=== PATIENT | male | born 1960 | race African-American/Black ===

== ENCOUNTER 2019-04-29 08:31 | Inpatient (IN) | payer OTHER ==
[2019-04-29 08:55] VITALS: BMI 32.1
--- NOTE | 2019-04-29 09:50 | HP ---
CIWA Score Nausea/Vomitin-Mild Nausea/No Vomiting Muscle Tremors: 1-None Visible, but [place] Anxiety: 0-No Anxiety, at Ease Agitation: 1-Slight > Activity Paroxysmal Sweats: 2 Orientation: 4Disoriented Place/Person Tacttile Disturbances: 0-None Auditory Disturbances: 0-None Visual Disturbances: 0-None Headache: 1-Very Mild (Patient score is low due to 2 days already in withdrawals. He was transferred from [facility] where he spent already one day in detox there and then referred.) CIWA-Ar Total Score: 10 - Admission Criteria OASAS Guidelines: Admission for Medically Managed Detox: Requires at least one of the followin. CIWA greater than 12 2. Seizures within the past 24 hours 3. Delirium tremens within the past 24 hours 4. Hallucinations within the past 24 hours 5. Acute intervention needed for co occurring medical disorder 6. Acute intervention needed for co occurring psychiatric disorder 7. Severe withdrawal that cannot be handled at a lower level of care (continued vomiting, continued diarrhea, abnormal vital signs) requiring intravenous medication and/or fluids 8. Admission ROS [facility] Chief Complaint: " I need to stop drinking and I need help" Allergies/Adverse Reactions: Allergies Allergy/AdvReac Type Severity Reaction Status Date / Time No Known Allergies Allergy Verified 04/29/19 08:42 History of Present Illness: Patient is a 59 year old black male with history of HTN and DM and alcohol dependence. He has no significant Family History and Surgical History. He was transferred here from [facility] where he already spent one day in detox with no meds and also one day traveling to be admitted here today. His breathalyzer was 0.098. However, he is a daily beer drinker of at least 6 pack of beer per day. He is asking for detox and perhaps rehab. He is appropriate for admission to detox for alcohol. Exam Limitations: No Limitations - Ebola screening Have you traveled outside of the country in the last 21 days: No Have you had contact with anyone from an Ebola affected area: No Have you been sick,other than usual withdrawal symptoms: No Do you have a fever: No - Review of Systems Constitutional: Chills, Loss of Appetite EENT: reports: No Symptoms Reported Respiratory: reports: No Symptoms reported Cardiac: reports: No Symptoms Reported GI: reports: No Symptoms Reported, Nausea, Poor Appetite : reports: No Symptoms Reported Musculoskeletal: reports: No Symptoms Reported Integumentary: reports: Dryness Neuro: reports: No Symptoms reported Endocrine: reports: No Symptoms Reported Hematology: reports: No Symptoms Reported Psychiatric: reports: No Sypmtoms Reported Other Systems: Reviewed and Negative Patient History - Patient Medical History Hx Anemia: No Hx Asthma: No Hx Chronic Obstructive Pulmonary Disease (COPD): No Hx Cancer: No Hx Cardiac Disorders: No Hx Congestive Heart Failure: No Hx Hypertension: Yes (on metoprolol and hydrochlorothiazide) Hx Diabetes: Yes (metformin and glipizide) Hx Gastrointestinal Disorders: No Hx Liver Disease: No Hx Genitourinary Disorders: No Hx Sexually Transmitted Disorders: No Hx Renal Disease (ESRD): No Hx Thyroid Disease: No Hx Human Immunodeficiency Virus (HIV): No Hx Hepatitis C: No Hx Depression: No Hx Suicide Attempt: No Hx Bipolar Disorder: No Hx Schizophrenia: No - Patient Surgical History Past Surgical History: No Hx Neurologic Surgery: No Hx Cataract Extraction: No Hx Cardiac Surgery: No Hx Lung Surgery: No Hx Breast Surgery: No Hx Breast Biopsy: No Hx Abdominal Surgery: No Hx Appendectomy: No Hx Cholecystectomy: No Hx Genitourinary Surgery: No Hx Section: No Hx Orthopedic Surgery: No Hx Hysterectomy: No Anesthesia Reaction: No - PPD History Previous Implant?: Yes (2017 at [facility] in [place]) Documented Results: Negative w/o proof Implanted On Prior [facility] Admission?: No PPD to be Administered?: No - Reproductive History Patient is a Female of Child Bearing Age (11 -55 yrs old): No - Smoking Cessation Smoking history: Current every day smoker Have you smoked in the past 12 months: Yes Hx Chewing Tobacco Use: No Initiated information on smoking cessation: Yes 'Breaking Loose' booklet given: 04/29/19 - Substance & Tx. History Hx Alcohol Use: Yes (see history) Hx Substance Use: No Substance Use Type: Alcohol Hx Substance Use Treatment: No - Substances abused Alcohol Substance route: Oral Frequency: Daily Amount used: beers- 5 24oz cans Age of first use: 16 Date of last use: 04/29/19 Family Disease History - Family Disease History Family Disease History: Diabetes: Grandparent (maternal grand mother), Other: Mother (alive and well), Brother (2 brothers alive and well), Sister (1 stepsister), Son (alive and well), Daughter (2 daughters and 2 stepdaughters) Admission Physical Exam [facility] - Vital Signs Vital Signs: Vital Signs - 24 hr 04/29/19 08:36 Temperature 97.6 F Pulse Rate 68 Respiratory 18 Rate Blood Pressure 137/63 - Physical General Appearance: Yes: No Apparent Distress, Alcohol on Breath HEENTM: Yes: EOMI, Hearing grossly Normal, Normocephalic, LAURA, Pharynx Normal Respiratory: Yes: Chest Non-Tender, Lungs Clear, Normal Breath Sounds Neck: Yes: No masses,lesions,Nodules, Supple, Trachea in good position Breast: Yes: Within Normal Limits Cardiology: Yes: Regular Rhythm, Regular Rate, S1, S2 Abdominal: Yes: Distended, Hernia (umbilical hernia noted) Genitourinary: Yes: Within Normal Limits Back: Yes: Within Normal Limits Musculoskeletal: Yes: full range of Motion, Gait Steady Neurological: Yes: warehouse team leader II-XII NML intact, Alert (alert bud disoriented to place) , Motor Strength 5/5, Normal Response Integumentary: Yes: Dry - Diagnostic (1) Alcohol dependence with acute alcoholic intoxication Current Visit: Yes Status: Acute (2) Diabetes 1.5, managed as type 2 Current Visit: Yes Status: Acute (3) Diabetes 1.5, managed as type 2 Current Visit: Yes Status: Acute (4) Diabetes Current Visit: Yes Status: Acute (5) Hypertension Current Visit: Yes Status: Acute Cleared for Admission [facility] - Detox or Rehab [facility] Level of Care: Medically Managed Detox Regimen/Protocol: Librium Screened but not Admitted - Documentation of Visit Screened but not Admitted: No Breathalyzer - Breathalyzer Breathalyzer: 0.098 Vital Signs - Vital Signs Vital signs refused: No Temperature: 97.6 F Temperature source: Oral Pulse Rate: 68 Respiratory Rate: 18 Blood Pressure: 137/63 BP Location: Left Arm Blood Pressure position: Sitting - Height Height: 5 ft 8 in - Weight Weight: 211 lb Weight measurement method: Standing scale - BMI Body Mass Index (BMI): 32.1 - Bowel Function Bowel Movement: No Urine Drug Screen - Test Device Lot number: [id number] Expiration date: 01/28/21 - Control Is test valid?: Yes - Results Drug screen NEGATIVE: Yes Inpatient Rehab Admission - Rehab Decision to Admit Inpatient rehab admission?: No
[2019-04-29] MEDS ORDERED: MAGNESIUM HYDROX 2400MG/30ML ORAL SUSPENSION 30 ML CUP PO PRN (10:13)
[2019-04-29] MEDS ORDERED: METHOCARBAMOL 500 MG TABLET PO PRN (10:13)
[2019-04-29] MEDS ORDERED: BISMUTH SUBSALICYLATE 524 MG/30 ML UD PO PRN (10:13)
[2019-04-29] MEDS ORDERED: ACETAMINOPHEN 325 MG TABLET (FP) PO PRN ×2 (10:13)
[2019-04-29] MEDS ORDERED: hydrOXYzine PAMOATE 25 MG CAPSULE (FP) PO PRN (10:13)
[2019-04-29] MEDS ORDERED: IBUPROFEN 400 MG TABLET (FP) PO PRN (10:13)
[2019-04-29] MEDS ORDERED: chlordiazePOXIDE HCL 10 MG CAPSULE PO PRN (10:13)
[2019-04-29] MEDS ORDERED: MAG HYDROX/AL HYDROX/SIMETH 30 ML UNIT-DOSE CUP PO PRN (10:13)
[2019-04-29] MEDS ORDERED: MENTHOL/PHENOL 1 EACH UD MM PRN (10:13)
[2019-04-29] MEDS ORDERED: MAGNESIUM CITRATE 300 ML BOTTLE PO PRN (10:13)
[2019-04-29] MEDS: metFORMIN HCL 500 MG TABLET (FP) PO SCH ×2 (11:12→17:35)
[2019-04-29] MEDS: HYDROCHLOROTHIAZIDE 12.5 MG CAPSULE (FP) PO SCH (11:12)
[2019-04-29 13:56] LABS: HEMATOCRIT 39.3 % (35.4-49); HEMOGLOBIN 12.9 GM/dL (11.7-16.9); MCH 28.7 pg (25.7-33.7); MCHC 32.8 g/dl (32.0-35.9); MEAN CELL VOLUME 87.4 fl (80-96); MEAN PLT VOLUME 8.2 fl (7.5-11.1); PLATELET COUNT 185 K/MM3 (134-434); RDW 13.9 % (11.9-15.9); WHITE BLOOD COUNT 6.3 K/mm3 (4.0-10.0)
[2019-04-29] MEDS: glipiZIDE-XL 10 MG TAB.ER.24 (FP) PO SCH ×2 (14:03→17:35)
[2019-04-29 14:04] LABS: ALBUMIN 3.9 g/dl (3.4-5.0); BILIRUBIN,TOTAL 0.2 mg/dL (0.2-1); BLOOD UREA NITROGEN 13.5 mg/dL (7-18); CALCIUM 8.9 mg/dL (8.5-10.1); CREATININE 1.1 mg/dL (0.55-1.3); TOT PROT 7.5 g/dl (6.4-8.2)
[2019-04-29] MEDS: chlordiazePOXIDE HCL 25 MG CAPSULE PO SCH (21:40)
[2019-04-29] MEDS: THIAMINE HCL 100 MG TABLET (FP) PO SCH (21:40)
[2019-04-29] MEDS: MELATONIN 5 MG TABLETS PO PRN (21:41)
[2019-04-30] MEDS: chlordiazePOXIDE HCL 25 MG CAPSULE PO SCH ×3 (06:44→22:02)
[2019-04-30] MEDS: PRENATAL VITAMINS W/ FOLIC ACID TABLET (FP) PO SCH (09:49)
[2019-04-30] MEDS: metFORMIN HCL 500 MG TABLET (FP) PO SCH ×2 (09:49→17:19)
[2019-04-30] MEDS: HYDROCHLOROTHIAZIDE 12.5 MG CAPSULE (FP) PO SCH (09:49)
[2019-04-30] MEDS: glipiZIDE-XL 10 MG TAB.ER.24 (FP) PO SCH ×2 (09:50→17:19)
--- NOTE | 2019-04-30 10:29 | PN ---
S CIWA - CIWA Score Nausea/Vomitin-No Nausea/No Vomiting Muscle Tremors: 3 Anxiety: 2 Agitation: 2 Paroxysmal Sweats: 1-Minimal Palms Moist Orientation: 0-Oriented Tacttile Disturbances: 0-None Auditory Disturbances: 0-None Visual Disturbances: 0-None Headache: 0-None Present CIWA-Ar Total Score: 8 BHS Progress Note (SOAP) Subjective: sweats interrupted sleep Objective: 04/30/19 10:29 Vital Signs Temperature 97.7 F 04/30/19 09:30 Pulse Rate 83 04/30/19 09:30 Respiratory Rate 20 04/30/19 09:30 Blood Pressure 133/82 04/30/19 09:30 O2 Sat by Pulse Oximetry (%) Laboratory Tests 04/29/19 04/29/19 04/29/19 10:20 10:20 10:20 WBC 6.3 RBC 4.50 Hgb 12.9 Hct 39.3 MCV 87.4 MCH 28.7 MCHC 32.8 RDW 13.9 Plt Count 185 MPV 8.2 Sodium 139 Potassium 4.0 Chloride 107 Carbon Dioxide 24 Anion Gap 9 BUN 13.5 Creatinine 1.1 Est GFR (CKD-EPI)AfAm 85.31 Est GFR (CKD-EPI)NonAf 73.61 POC Glucometer Random Glucose 173 H Calcium 8.9 Total Bilirubin 0.2 AST 43 H ALT 36 Alkaline Phosphatase 77 Total Protein 7.5 Albumin 3.9 RPR Titer Nonreactive 04/29/19 04/29/19 04/30/19 10:28 16:37 06:44 WBC RBC Hgb Hct MCV MCH MCHC RDW Plt Count MPV Sodium Potassium Chloride Carbon Dioxide Anion Gap BUN Creatinine Est GFR (CKD-EPI)AfAm Est GFR (CKD-EPI)NonAf POC Glucometer 173 121 72 Random Glucose Calcium Total Bilirubin AST ALT Alkaline Phosphatase Total Protein Albumin RPR Titer labs noted aaox3 ambulating no acute distress Assessment: 04/30/19 10:29 mild withdrawal sx Plan: continue detox increase fluids
[2019-04-30] MEDS: THIAMINE HCL 100 MG TABLET (FP) PO SCH (22:02)
[2019-05-01] MEDS: metFORMIN HCL 500 MG TABLET (FP) PO SCH ×2 (06:01→17:00)
[2019-05-01] MEDS: chlordiazePOXIDE 5 MG CAPSULE PO SCH ×3 (06:01→22:14)
[2019-05-01] MEDS: glipiZIDE-XL 10 MG TAB.ER.24 (FP) PO SCH ×2 (07:15→17:00)
[2019-05-01] MEDS: PRENATAL VITAMINS W/ FOLIC ACID TABLET (FP) PO SCH (10:31)
[2019-05-01] MEDS: HYDROCHLOROTHIAZIDE 12.5 MG CAPSULE (FP) PO SCH (10:31)
--- NOTE | 2019-05-01 12:04 | PN ---
S CIWA - CIWA Score Nausea/Vomitin-No Nausea/No Vomiting Muscle Tremors: 2 Anxiety: 1-Mildly Anxious Agitation: 2 Paroxysmal Sweats: 1-Minimal Palms Moist Orientation: 0-Oriented Tacttile Disturbances: 0-None Auditory Disturbances: 0-None Visual Disturbances: 0-None Headache: 0-None Present CIWA-Ar Total Score: 6 BHS Progress Note (SOAP) Subjective: sleepy tired Objective: 05/01/19 12:01 Vital Signs Temperature 98.1 F 05/01/19 09:43 Pulse Rate 86 05/01/19 09:43 Respiratory Rate 18 05/01/19 09:43 Blood Pressure 142/89 05/01/19 09:43 O2 Sat by Pulse Oximetry (%) Laboratory Tests 04/29/19 04/29/19 04/29/19 10:20 10:20 10:20 WBC 6.3 RBC 4.50 Hgb 12.9 Hct 39.3 MCV 87.4 MCH 28.7 MCHC 32.8 RDW 13.9 Plt Count 185 MPV 8.2 Sodium 139 Potassium 4.0 Chloride 107 Carbon Dioxide 24 Anion Gap 9 BUN 13.5 Creatinine 1.1 Est GFR (CKD-EPI)AfAm 85.31 Est GFR (CKD-EPI)NonAf 73.61 POC Glucometer Random Glucose 173 H Calcium 8.9 Total Bilirubin 0.2 AST 43 H ALT 36 Alkaline Phosphatase 77 Total Protein 7.5 Albumin 3.9 RPR Titer Nonreactive 04/29/19 04/29/19 04/30/19 10:28 16:37 06:44 WBC RBC Hgb Hct MCV MCH MCHC RDW Plt Count MPV Sodium Potassium Chloride Carbon Dioxide Anion Gap BUN Creatinine Est GFR (CKD-EPI)AfAm Est GFR (CKD-EPI)NonAf POC Glucometer 173 121 72 Random Glucose Calcium Total Bilirubin AST ALT Alkaline Phosphatase Total Protein Albumin RPR Titer 04/30/19 05/01/19 16:20 06:03 WBC RBC Hgb Hct MCV MCH MCHC RDW Plt Count MPV Sodium Potassium Chloride Carbon Dioxide Anion Gap BUN Creatinine Est GFR (CKD-EPI)AfAm Est GFR (CKD-EPI)NonAf POC Glucometer 140 157 Random Glucose Calcium Total Bilirubin AST ALT Alkaline Phosphatase Total Protein Albumin RPR Titer labs noted aaox3 ambulating no acute distress Assessment: 05/01/19 12:02 mild withdrawals Plan: continue detox increase fluids
[2019-05-01] MEDS: MELATONIN 5 MG TABLETS PO PRN (22:16)
[2019-05-01] MEDS: THIAMINE HCL 100 MG TABLET (FP) PO SCH (23:44)
[2019-05-02] MEDS ORDERED: chlordiazePOXIDE HCL 10 MG CAPSULE PO PRN
[2019-05-02] MEDS: chlordiazePOXIDE HCL 10 MG CAPSULE PO SCH ×3 (06:10→22:37)
[2019-05-02] MEDS: glipiZIDE-XL 10 MG TAB.ER.24 (FP) PO SCH ×2 (06:10→16:48)
[2019-05-02] MEDS: metFORMIN HCL 500 MG TABLET (FP) PO SCH ×2 (06:10→16:48)
[2019-05-02] MEDS: PRENATAL VITAMINS W/ FOLIC ACID TABLET (FP) PO SCH (09:26)
[2019-05-02] MEDS: HYDROCHLOROTHIAZIDE 12.5 MG CAPSULE (FP) PO SCH (09:26)
--- NOTE | 2019-05-02 13:30 | PN ---
S CIWA - CIWA Score Nausea/Vomitin-No Nausea/No Vomiting Muscle Tremors: 2 Anxiety: 1-Mildly Anxious Agitation: 1-Slight > Activity Paroxysmal Sweats: No Perspiration Orientation: 0-Oriented Tacttile Disturbances: 0-None Auditory Disturbances: 0-None Visual Disturbances: 0-None Headache: 0-None Present CIWA-Ar Total Score: 4 BHS Progress Note (SOAP) Subjective: tired Objective: 05/02/19 13:29 Vital Signs Temperature 98.1 F 05/02/19 09:20 Pulse Rate 81 05/02/19 09:20 Respiratory Rate 17 05/02/19 09:20 Blood Pressure 127/75 05/02/19 09:20 O2 Sat by Pulse Oximetry (%) aaox3 ambulating no acute distress Assessment: 05/02/19 13:30 mild withdrawal sx Plan: continue detox increase fluids d/c in am
[2019-05-02] MEDS: THIAMINE HCL 100 MG TABLET (FP) PO SCH (22:37)
[2019-05-03] MEDS ORDERED: chlordiazePOXIDE HCL 10 MG CAPSULE PO ONE (05:00)
[2019-05-03] MEDS: glipiZIDE-XL 10 MG TAB.ER.24 (FP) PO SCH (07:55)
[2019-05-03] MEDS: metFORMIN HCL 500 MG TABLET (FP) PO SCH (07:55)
[2019-05-03 09:45] VITALS: BP 100/66; PULSE 93; TEMP 97.5
--- NOTE | 2019-05-03 12:14 | DS ---
[facility] Detox Discharge Summary Admission Date: 04/29/19 Discharge Date: 05/03/19 - History Present History: Alcohol Dependence Additional Comments: Pt is medically cleared and discharge today. Pt completed his detox protocol. As per counselor's notes, "Counselor met with patient to discuss his aftercare plans. Patient was told that his packet was sent to the [facility] in [place] as requested. He states he has had second thoughts about going there. He states he will think about going into the care home in [place] over the weekend. His appointment is for Aug at the [facility]. Counselor encouraged the patient to follow up for continued treatment". Pt is encouraged to follow-up as discussed with his counselor and also to follow-up with his pmd. Pt is AOX3 and in no acute distress. Pertinent Past History: H/O HTN, DM, and alcohol use disorder. - Physical Exam Results Vital Signs: Vital Signs Temperature 97.5 F L 05/03/19 09:44 Pulse Rate 93 H 05/03/19 09:44 Respiratory Rate 18 05/03/19 09:44 Blood Pressure 100/66 05/03/19 09:44 O2 Sat by Pulse Oximetry (%) Vital Signs 05/03/19 05/03/19 06:42 09:44 Temperature 97.7 F 97.5 F L Pulse Rate 76 93 H Respiratory 18 18 Rate Blood Pressure 131/58 L 100/66 Lab Results WBC 6.3 K/mm3 (4.0-10.0) 04/29/19 10:20 RBC 4.50 M/mm3 (4.00-5.60) 04/29/19 10:20 Hgb 12.9 GM/dL (11.7-16.9) 04/29/19 10:20 Hct 39.3 % (35.4-49) 04/29/19 10:20 MCV 87.4 fl (80-96) 04/29/19 10:20 MCHC 32.8 g/dl (32.0-35.9) 04/29/19 10:20 RDW 13.9 % (11.9-15.9) 04/29/19 10:20 Plt Count 185 K/MM3 (134-434) 04/29/19 10:20 Sodium 139 mmol/L (136-145) 04/29/19 10:20 Potassium 4.0 mmol/L (3.5-5.1) 04/29/19 10:20 Chloride 107 mmol/L (98-107) 04/29/19 10:20 Carbon Dioxide 24 mmol/L (21-32) 04/29/19 10:20 Anion Gap 9 MMOL/L (8-16) 04/29/19 10:20 BUN 13.5 mg/dL (7-18) 04/29/19 10:20 Creatinine 1.1 mg/dL (0.55-1.3) 04/29/19 10:20 Random Glucose 173 mg/dL (74-106) H 04/29/19 10:20 Calcium 8.9 mg/dL (8.5-10.1) 04/29/19 10:20 Labs noted. Pertinent Admission Physical Exam Findings: withdrawal symptoms. - Treatment Hospital Course: Detox Protocol Followed, Detoxed Safely, Responded well, Discharged Condition Good - Medication Discharge Medications: Ambulatory Orders Glipizide [Glipizide ER] 10 mg PO BID 04/29/19 Hydrochlorothiazide [Hctz -] 12.5 mg PO DAILY 04/29/19 Metformin HCl [Glucophage] 1,000 mg PO BID 04/29/19 Metoprolol Succinate 100 mg PO DAILY 04/29/19 - Diagnosis (1) Alcohol dependence with acute alcoholic intoxication Status: Chronic (2) Diabetes 1.5, managed as type 2 Status: Chronic (3) Hypertension Status: Chronic - AMA Did Patient Leave Against Medical Advice: No
== END 2019-05-03 09:37 | disposition home or self-care (01) | DRG 775 ==
LOC: YASAS 08:31 → Y6N 10:35
PROVIDERS: ADMIT Surgery; ATTEND Surgery
PROC: HZ2ZZZZ Detoxification Services for Substance Abuse Treatment (ICD-10-PCS; principal; 2019-04-29)
DX: F10.230 Alcohol dependence with withdrawal, uncomplicated (principal); F17.210 Nicotine dependence, cigarettes, uncomplicated; I10 Essential (primary) hypertension; E11.9 Type 2 diabetes mellitus without complications; Z79.84 Long term (current) use of oral hypoglycemic drugs
CPT/HCPCS: 36415; 80053; 82962; 85027; 86480; 86593